=== PATIENT | female | born 1995 | race African-American/Black ===

== ENCOUNTER 2019-10-11 18:45 | Emergency (ER) | payer BC, SELFPAY ==
[2019-10-11 18:50] VITALS: BP 121/77; PULSE 90; RESP 14; TEMP 36.6; O2SAT 100
--- NOTE | 2019-10-11 19:41 | ED.GENADULT ---
HPI - General Adult General Chief complaint: Upper Respiratory Infection Stated complaint: sore throat Time Seen by Provider: 10/11/19 19:20 Source: patient and RN notes reviewed Mode of arrival: ambulatory Limitations: no limitations History of Present Illness HPI narrative: 24-year-old -[place] female presents with complaints of sore throat for 1 day. No treatment. Debbie had a virtual platform with a provider and was prescribed viscous lidocaine in which she has not started. No high fevers, drooling, neck or throat swelling. Pain is bilateral. Hurts to swallow. Exacerbation factors consist of eating and drinking. No rhinorrhea. Nasal congestion. No voice change. No diarrhea, nausea, vomiting, or abdominal pain. Tolerating liquids well. Denies chills, cough, dyspnea, difficulty swallowing, jaw pain, dental pain, facial pain, foreign body sensation, and rash. Denies chest pain, headaches, weakness, fatigue, myalgia, or facial swelling. Traveled to [place] last 8 days ago for a photoshoot. Denies concern for COVID-19 or exposures to her knowledge. Remains active. Some parts of this dictation were generated by voice recognition software and may contain typographical and/or grammatical inaccuracies. Related Data Home Medications Medication Instructions Recorded Confirmed lidocaine HCl [Lidocaine Viscous] 1 applic MUCOUS MEMBRANE QID PRN 10/11/19 10/11/19 Allergies Allergy/AdvReac Type Severity Reaction Status Date / Time Penicillins Allergy Unknown SWELLING Verified 10/13/17 16:00 Review of Systems Review of Systems: Narrative: CONSTITUTIONAL: Denies fever, chills, sweats. EYES: Denies visual changes, redness, discharge. ENT: Denies rhinorrhea, otalgia. Complains of sore throat, congestion. CARDIOVASCULAR: Denies chest pain, palpitations, edema. RESPIRATORY: Denies dyspnea, wheezing, cough. GASTROINTESTINAL: Denies abdominal pain, nausea, vomiting, diarrhea. GENITOURINARY: Denies dysuria, hematuria, abnormal discharge. SKIN: Denies rash or itching. MUSCULOSKELETAL: Denies acute back pain, joint pain, or myalgia. NEUROLOGIC: Denies numbness or focal weakness. PSYCHIATRIC: Denies anxiety or depression. All systems reviewed & are unremarkable except as noted in HPI and below. [facility] Past Medical History Medical History (Updated 10/12/19 @ 00:00 by Background Daemon) No significant past medical history Surgical History Surgical History (Updated 10/11/19 @ 20:01 by GERMAINE Ortega) No significant past surgical history Family History Family History (Updated 10/11/19 @ 20:04 by GERMAINE Ortega) Father Hypertension Mother Hypertension Grandparent Heart disease Social History Social History (Updated 10/11/19 @ 20:03 by GERMAINE Ortega) Smoking status: Never smoker Alcohol intake: never Substance use: current Substance use type: marijuana Living arrangements: with family Occupation/Education: occupation Gender identity (if verbalized by the patient): Female Comments At time of signature, agree with nurse past medical, surgical, social, and family history. There is no relevant family history pertinent to the presenting complaint. Exam Narrative: Exam Narrative: GENERAL: This is a well-nourished, well-developed patient, in no apparent distress. Speaks in full sentences without deficits and ambulates with steady gait without dyspnea. HEAD: normocephalic, atraumatic. EYES: PERRL. Sclera clear/white. Vision is grossly intact. EARS: External ears normal, auditory canals clear and without drainage, TMs normal without perforation. Hearing grossly intact. NOSE: External nose normal with no obvious nasal discharge, nares with mild-moderate redness and enlarge turbinates, no rhinorrhea. Mouth: moist mucous membranes. THROAT: Mucous membranes moist, posterior pharynx with moderate erythema, moderate exudate, +2 tonsils, no drainage, no concern for Peritonsillar
== END 2019-10-11 19:54 | disposition home or self-care (01) ==
PROVIDERS: Emergency Provider Nurse Practitioner Family
DX: J02.0 Streptococcal pharyngitis (principal); Z20.828 Contact with and (suspected) exposure to other viral communicable diseases
CPT/HCPCS: 87804; 87880; 99213; G0463